=== PATIENT | male | born 1990 | race Caucasian/White ===

== ENCOUNTER 2019-12-24 15:20 | Emergency (ER) | payer OTHER ==
[~2019-12-24] VITALS: Ht 167.6 cm; Wt 65.8 kg
== END 2019-12-24 20:07 | disposition home or self-care (01) ==
LOC: ER 15:20 → EDSEX 15:42 → ER 15:42
DX: B34.9 Viral infection, unspecified (principal); J11.1 Influenza due to unidentified influenza virus with other respiratory manifestations; Z20.828 Contact with and (suspected) exposure to other viral communicable diseases

== ENCOUNTER 2021-08-27 23:05 | Emergency (ER) | payer OTHER ==
[~2021-08-27] VITALS: Ht 167.6 cm; Wt 66.2 kg
[2021-08-28] MEDS ORDERED: MECLIZINE HCL25 MG PO (03:52)
== END 2021-08-28 04:22 ==
LOC: ER 23:05
DX: R11.2 Nausea with vomiting, unspecified (principal); R42 Dizziness and giddiness